=== PATIENT | male | born 1965 ===

== ENCOUNTER 2017-08-08 16:40 | Emergency (ER) | payer OTHER, SELFPAY ==
[2017-08-08] VITALS (18 sets, daily range): BP systolic 151–179; BP diastolic 83–112; PULSE 77–93; RESP 15–22; TEMP 36.8–36.9; O2SAT 98; BMI 37.6
[2017-08-08] MEDS: LACTATED RINGERS 1,000 ML 150 ML IV (16:30)
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
[2017-08-08] MEDS: HYDROMORPHONE 0.5 MG INJ 2 MG IV (17:00)
[2017-08-08 17:15] LABS: Add Manual Diff / Slide Review NO; Basophils Percent Auto 0.6 % (0-2); Eosinophils Percent Auto 0.5 % (2-4); Hematocrit 44.6 % (41-53); Hemoglobin 15.7 g/dL (13.5-17.5); Lymphocytes Percent Auto 13.4 % (25-40); Mean Corpuscular HGB Conc 35.1 % (30-36); Mean Corpuscular Hemoglobin 31.8 PG (26-34); Mean Corpuscular Volume 90.7 fL (80-100); Monocytes Percent Auto 9.3 % (3-14); Neutrophils Absolute Auto 7600 /uL (3000-5900); Neutrophils Percent Auto 76.2 % (50-75); Platelet Count 198 X10^3/uL (150-400); Red Blood Cell Count 4.92 X10^6/uL (4.5-5.9); Red Cell Distribution Width 12.4 % (11.6-14.8)
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
[2017-08-08] MEDS: KETAMINE 500 MG/10 ML INJ 20 MG IV ×3 (17:38→19:20)
--- NOTE | 2017-08-08 17:42 | PC.NURSE ---
Pt writhing in pain s/p 2mg dilaudid. Dr Tan made aware. Order for 20mg IV ketamine. Given. Pt reports feeling much better. Reclined in bed. 1:1 with pt in room. Pt drowsy. Allowed to relax. Vitals remain WNL for pt. IV LR infusing at maintenance rate of 150 mL/hr per Dr Tan.
[2017-08-08 17:52] LABS: BUN Creatinine Ratio 16.7 (6-22); Calcium 9.3 mg/dL (8.4-10.2); Estimated Glomerular Filt Rate > 60.0 mL/min (>60); Glucose 127 mg/dL (70-100); HEMOLYSIS 20 (0-50); Potassium 4.1 mmol/L (3.4-5.1); Sodium 137 mmol/L (137-145)
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
[2017-08-08] MEDS: ONDANSETRON 4 MG/2 ML INJ IV (18:30)
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
--- NOTE | 2017-08-08 19:31 | PC.NURSE ---
Dr Tan in to answer any additional questions pt or family may have regarding care. Advised to contact [facility] in 7-10 days if they do not hear from them sooner. Getting ready for pt discharge.
[2017-08-08] MEDS: HYDROCODONE/ACET 5/325 PREPACK 1 BOTTLE MISC (19:43)
[2017-08-08 21:10] LABS: Reflexed Lactate in 2 Hours Y
[2017-08-12 13:10] LABS: Carboxyhemoglobin SVL 1.9
== END 2017-08-08 19:55 | disposition home or self-care (01) ==
PROVIDERS: Emergency Provider Emergency Medicine
DX: T24.002A Burn of unspecified degree of unspecified site of left lower limb, except ankle and foot, initial encounter (principal); T24.001A Burn of unspecified degree of unspecified site of right lower limb, except ankle and foot, initial encounter; X14.1XXA Other contact with hot air and other hot gases, initial encounter
CPT/HCPCS: 16025; 80048; 82375; 82962; 83605; 85025; 93005; 96374; 96375; 96376; 99284; 99285; 99291; 99292; J1170; J2405